=== PATIENT | female | born 1985 | race African-American/Black ===

== ENCOUNTER 2021-09-04 00:42 | Emergency (ER) | payer OTHER | END 2021-09-04 02:42 | disposition left against medical advice (07) | LOC: ERS 00:42 | DX: Z53.21 Procedure and treatment not carried out due to patient leaving prior to being seen by health care provider (principal) ==

== ENCOUNTER 2023-07-04 03:21 | Emergency (ER) | payer OTHER ==
[2023-07-04] MEDS ORDERED: Ketorolac Tromethamine 30 MG/ML VIAL ONE (05:31)
[2023-07-04] MEDS ORDERED: Amoxicillin/Potassium Clav 875 MG TAB ONE (05:40)
== END 2023-07-04 06:00 | disposition home or self-care (01) ==
LOC: ERS 03:21
DX: K08.89 Other specified disorders of teeth and supporting structures (principal)
CPT/HCPCS: 96372; 99282; J1885

== ENCOUNTER 2024-03-14 18:18 | Emergency (ER) | payer OTHER ==
[2024-03-14] MEDS ORDERED: Ketorolac Tromethamine 30 MG (1 mL) VIAL ONE (19:27)
== END 2024-03-14 19:42 | disposition home or self-care (01) ==
LOC: ERS 18:18
DX: K02.9 Dental caries, unspecified (principal); K04.7 Periapical abscess without sinus
CPT/HCPCS: 96372; 99282; J1885